=== PATIENT | male | born 1960 | race Caucasian/White ===

== ENCOUNTER 2018-05-04 12:40 | Emergency (ER) | payer BC ==
[~2018-05-04] VITALS: Ht 177.8 cm; Wt 90.3 kg
[~2018-05-04 12:40] MED LIST: FLUO40CA8; METH36TA PO; ZOLP10TA2
--- NOTE | 2018-05-04 12:52 | NUR ---
PT A/OX4, PRESENTS TO THE ER C/O L ARM NUMBNESS/TINGLING THAT STARTED AROUND 0400. PER PT, L ARM PAIN IS NON-PROVOKED, TINGLING IN QUALITY, RADIATES TO THE L ARM, INTERMITTENT. NO RESPIRATORY DISTRESS NOTED. PT DENIES SOB, N/V/D, DIZZINESS, HEADACHE.
--- NOTE | 2018-05-04 12:53 | NUR ---
VAHE WEBER AT BEDSIDE FOR MSE.
[2018-05-04] MEDS ORDERED: METH54TA PO (12:58)
[2018-05-04] MEDS ORDERED: OXYC30TA2 PO (12:58)
--- NOTE | 2018-05-04 13:01 | NUR ---
[employer] AT BEDSIDE.
--- NOTE | 2018-05-04 13:35 | NUR ---
Patient discharged to home in stable conditon. Written and verbal after care instructions given. Patient verbalizes understanding of instructions. ALL BELONGINGS W/ PT. PT SELF-AMBULATED W/O DIFFICULTY.
[2018-05-04 13:36] VITALS: BP 127/80
== END 2018-05-04 13:40 | disposition home or self-care (01) ==
LOC: ER 12:40
DX: M54.12 Radiculopathy, cervical region (principal); I10 Essential (primary) hypertension; Z79.891 Long term (current) use of opiate analgesic; Z79.899 Other long term (current) drug therapy
CPT/HCPCS: 36415; 70030-TC; 93005; A4663